=== PATIENT | female | born 1985 | race Caucasian/White ===

== ENCOUNTER 2023-07-16 12:13 | Emergency (ER) | payer SELFPAY ==
[~2023-07-16] VITALS: Ht 162.6 cm; Wt 87.1 kg
[2023-07-16 12:27] VITALS: BP 128/79; PULSE 75; RESP 16; TEMP 98; O2SAT 99
[2023-07-16] MEDS: KETOROLAC 30 MG/ML VIAL IVP ONE (13:41)
[2023-07-16] MEDS: PROCHLORPERAZINE 10 MG/2 ML VIAL IVP ONE (13:42)
[2023-07-16] MEDS: diphenhydrAMINE 50 MG/ML VIAL IVP ONE (13:45)
[2023-07-16] MEDS: NACL 0.9% 1,000 ML IV ONE (13:47)
[2023-07-16] MEDS: DEXAMETHASONE 10 MG/ML VIAL IVP ONE (14:43)
[2023-07-16 14:49] VITALS: BP 126/66; PULSE 82; RESP 17; TEMP 98; O2SAT 98
== END 2023-07-16 14:50 | disposition home or self-care (01) ==
LOC: MED 12:13
DX: G43.909 Migraine, unspecified, not intractable, without status migrainosus (principal); R11.10 Vomiting, unspecified; Z79.899 Other long term (current) drug therapy
CPT/HCPCS: 81025; 82948; 96361; 96374; 96375; 99284; J0780; J1100; J1200; J1885; J7030